=== PATIENT | male | born 1960 ===

== ENCOUNTER 2020-12-12 08:36 | Emergency (ER) | payer OTHER ==
[~2020-12-12] VITALS: Ht 182.9 cm; Wt 90.7 kg
[2020-12-12] MEDS ORDERED: COZAAR100 MG (08:47)
[2020-12-12] MEDS ORDERED: GLIMEPIRIDE4 MG (08:47)
[2020-12-12] MEDS ORDERED: FORTAMET500 MG (08:47)
[2020-12-12] MEDS ORDERED: PYRIDIUM DS200 MG PO (15:37)
[2020-12-12] MEDS ORDERED: BACTRIM DS TAB1 EACH PO (15:37)
== END 2020-12-12 15:48 ==
LOC: ER 08:36
DX: N39.0 Urinary tract infection, site not specified (principal); R31.0 Gross hematuria; B96.29 Other Escherichia coli [E. coli] as the cause of diseases classified elsewhere